=== PATIENT | female | born 1945 | race Caucasian/White ===

== ENCOUNTER 2017-03-18 13:53 | Emergency (ER) | payer MEDICARE, MEDICAID ==
--- NOTE | ~2017-03-18 | ER ---
PATIENT'S NAME: HILDA TURNER [facility] AGE: 71 Y [address] ROOM: [place] [address] LOCATION: ED ADMIT DATE: 03/18/2017 ER/Outpatient Report DISCHARGE DATE: 03/18/2017 FAMILY PHYSICIAN: Lucia Cosme MD ATTENDING PHYSICIAN: Ehsan Liu Time of Arrival: 1353 hours. Time of Evaluation: 1446 hours. CHIEF COMPLAINT: Crohn's flare. HISTORY OF PRESENT ILLNESS: The patient is a 71-year-old female, who presents to the emergency department today with a chief complaint of Crohn's flare. She reports this started 8 days prior to arrival. She reports that she was having some rectal irritation. She has a history of Crohn's and rectal irritation in the past with colitis. She has had dilation in the past. She reports this pain has just gotten worse. She went to her primary care doctor to get refills on pain medicine that she is running out of. The primary care doctor did EKG and lab workup. She was noted to have a low potassium. There were some concerning signs on the EKG with some slight elevation in I and aVL with some Q-waves and some PVCs. The patient does report no chest pain. Denies any shortness of breath. She denies any fevers or chills. No nausea or vomiting. She does have constant diarrhea. She is occasionally short of breath when active. She did take some loperamide. Complains of abdominal pain. It is currently controlled at this time. PAST MEDICAL HISTORY: Crohn's, hypokalemia, thyroid, vitamin D, depression, small-bowel obstruction. PAST SURGICAL HISTORY: Colonoscopy, ORIF, appendectomy resection, hysterectomy, tonsillectomy. SOCIAL HISTORY: The patient smokes 3 packs per day for 32 years. Denies any alcohol or illicit drug use. ALLERGIES: TO TYLOX, PENICILLIN, AMOXICILLIN, DEMEROL, AND NUCYNTA. MEDICATIONS: 1. Morphine. 2. Imuran. PATIENT'S NAME: HILDA TURNER [facility] AGE: 71 Y [address] ROOM: [place] [address] LOCATION: ED ADMIT DATE: 03/18/2017 ER/Outpatient Report DISCHARGE DATE: 03/18/2017 FAMILY PHYSICIAN: Lucia Cosme MD ATTENDING PHYSICIAN: Ehsan Liu 3. Tramadol. 4. Loperamide. 5. Glucerna. REVIEW OF SYSTEMS: All systems are reviewed by myself and are negative with the exception of those discussed in the HPI and past medical history. PHYSICAL EXAMINATION: VITAL SIGNS: Weight 87.5 kg, blood pressure 193/84, pulse 73, respiratory rate 18, temperature 98.3, oxygen saturation 97% on room air. GENERAL: The patient is a 71-year-old female, who appears as stated age, in no acute distress at this time. HEENT. Head: Normocephalic, atraumatic. Pupils are equal, round, and reactive to light. Oropharynx is clear. NECK: Supple. There is no nuchal rigidity. CARDIOVASCULAR: Regular rate and rhythm. No murmurs, rubs, or gallops. LUNGS: Clear to auscultation bilaterally. No wheezes, rales, or rhonchi. ABDOMEN: Soft, nontender, and nondistended. No rebound, rigidity, or guarding. MUSCULOSKELETAL: The patient moves all 4 extremities. RECTAL: The patient has excoriated rectal ring. SKIN: Warm and dry. LABORATORY DATA AND X-RAYS: Labs and x-rays are obtained. EKG is obtained and interpreted by myself shows a sinus rhythm with a rate of 68, normal axis, normal interval. No ST elevation. There is ST depression in V4, V5, V6 which is no significant change from 11/10/2015. Occult blood is negative. Lactate is normal. CBC is normal. Coags are normal. CMP is unremarkable, except for potassium 3.0. LFTs normal. Cardiac enzymes are normal. ProBNP is 443. Procalcitonin is less than 0.05. IMPRESSION: 1. Crohn's flare. 2. Rectal colitis. 3. Abnormal EKG. 4. Hypokalemia. 5. Initial visit. EMERGENCY DEPARTMENT COURSE: The patient was brought back to the examination room. Seen and evaluated by myself. IV is established. Laboratory analysis and imaging are obtained as described above. I have reviewed the patient's records from the clinic as well. I have discussed results with the patient. I have recommended PATIENT'S NAME: HILDA TURNER [facility] AGE: 71 Y [address] ROOM: [place], [place] [address] LOCATION: [facility] ADMIT DATE: 03/18/2017 ER/Outpatient Report DISCHARGE DATE: 03/18/2017 FAMILY PHYSICIAN: Lucia Cosme MD ATTENDING PHYSICIAN: Ehsan Liu admission to the hospital for further evaluation, treatment, and management as this EKG is concerning. The patient reports that she wants to go home at this time. She is not having any chest pain. She is not having shortness of breath. She feels fine. She is not having pain. I have discussed with her that this could be a heart attack, however, and we have not ruled this out. Thus, the benefits would be to rule this out. We could also replenish her potassium to help with her pain. She reports that she has potassium at home, has some script for that she can take. She also reports that she has no pain at this time. She does not want to stay in the hospital. The patient does appear to have capacity to make her own medical decisions after this discussion. I have discussed I would like her to follow up with primary care doctor as soon as possible. I have also asked she follows up with Gastroenterology as soon as she can. I have written a prescription for potassium for the next 5 days. I have discussed [id number] instructions including chest pain, shortness of breath, or any other concerns to return to the emergency department as soon as possible. The patient is agreeable without further questions at this time. DISPOSITION: The patient discharged home in good condition. DO OLLIE ANTON/herminio /[id number] d: 03/18/[id number] t: 03/19/17 0649, OUTPATIENT REPORT
[~2017-03-18 13:53] MED LIST: DERMOPLAST SPRA56 GM TOP; FEOSOL325 MG PO; FLORASTOR250 MG PO; IMURAN50 MG PO; IPRAT-ALBUT 0.5-3 ML INH; LOVENOX 4040 MG/0.4 SUB-Q; MAG119MX PO; MELATONIN3 MG PO; MYCOLOG CREAM 330 GM TOP; NICODERM/HABITR21 MG TRANS; NUCYNTA50 MG PO; PEPCID20 MG PO; TESSALON PERLE100 MG PO; TOBREX OPHTH O3.5 GM OPHTH; TOBREX5 ML OPHTH; TYLENOL325 MG PO; VALIUM5 MG PO
[2017-03-18 15:52] LABS: BASOPHIL % 0.6 %; EOSINOPHIL # 0.2 K/uL (0.0-0.5); EOSINOPHIL % 4.1 %; HEMATOCRIT 37.5 % (33.0-46.0); HEMOGLOBIN 12.1 g/dL (10.0-15.0); IMMATURE GRANULOCYTE % 0.2 %; LYMPHOCYTE # 1.1 K/uL (0.8-4.0); LYMPHOCYTE % 20.7 %; MCH 29.7 pg (27.0-34.0); MCHC 32.3 gm/dL (32.0-36.5); MCV 91.9 fl (83.0-98.0); MONOCYTE # 0.3 K/uL (0.0-1.0); MONOCYTE % 5.6 %; MPV 11.3 fl (9.4-12.4); NEUTROPHIL # (ANC) 3.6 K/uL (1.8-7.8); NEUTROPHIL % 68.8 %; NRBC % 0 /100WBC (0-0.00); PLATELET COUNT 175 K/uL (150-450); RBC 4.08 M/uL (3.50-5.50); RDW-CV 13.7 % (11.9-14.6); WBC 5.2 K/uL (4.0-11.0)
[2017-03-18 16:00] LABS: INR - (THERAPEUTIC) 1.01 (0.92-1.07); PROTIME 10.6 SECONDS (9.8-11.4); PTT 28 SECONDS (25-32)
[2017-03-18 16:13] LABS: ALBUMIN 2.8 gm/dL (3.5-5.0); ALK PHOS 85 IU/L (33-138); ALT 12 IU/L (12-78); AST 13 IU/L (10-40); BLOOD UREA NITROGEN 11 mg/dL (6-24); CALCIUM 7.9 mg/dL (8.5-10.5); CHLORIDE 110 mMol/L (96-110); CO2 26 mMol/L (22-32); CPK 34 IU/L (21-215); CREATININE 0.7 mg/dL (0.5-1.1); ESTIMATED GFR (MDRD EQUATION) > 60; MAGNESIUM 1.8 mg/dL (1.8-2.6); SODIUM 143 mMol/L (135-145); TOTAL BILIRUBIN 0.8 mg/dL (0.0-1.5); TOTAL PROTEIN 6.2 g/dL (6.0-8.4)
== END 2017-03-18 16:57 | disposition disaster alternative care site (69) ==
LOC: GMED 13:53
PROVIDERS: Emergency Medicine
DX: K50.10 Crohn's disease of large intestine without complications (principal); E87.6 Hypokalemia; R94.31 Abnormal electrocardiogram [ECG] [EKG]; F17.210 Nicotine dependence, cigarettes, uncomplicated; F32.9 Major depressive disorder, single episode, unspecified; Z88.0 Allergy status to penicillin; Z88.1 Allergy status to other antibiotic agents; Z88.5 Allergy status to narcotic agent; Z90.49 Acquired absence of other specified parts of digestive tract; Z90.710 Acquired absence of both cervix and uterus; Z79.899 Other long term (current) drug therapy
CPT/HCPCS: J2270; J7030